=== PATIENT | female | born 1960 | race Caucasian/White ===

== ENCOUNTER 2024-05-20 09:26 | Outpatient (AMB) | payer MEDICARE, MEDICAID, SELFPAY ==
[2024-05-20 09:41] VITALS: BP 138/87; PULSE 77; RESP 19; TEMP 36.3; O2SAT 91; BMI 49.9
--- NOTE | 2024-05-20 09:41 | ORTHONT_ITS ---
Vital signs 05/20/24 09:41 Height 1.65 m Height Method Stated Weight 136.078 kg Weight Measurement Method Estimated by Patient BMI 49.9 BP 138/87 H Blood Pressure Source Automatic Cuff Blood Pressure Location Right Upper Arm Position Sitting Respiration 19 Pulse 77 Pulse Source Monitor Temp 97.3 F Temp Source Temporal Artery Scan Pulse Oximetry (%) 91 L Oxygen Delivery Method Room Air Med/Allergies Allergies & Medications Allergies tetracycline Allergy (Intermediate, Verified 05/20/24 09:42) HIVE Iodinated Contrast Media Allergy (Verified 05/20/24 09:42) Medication Reconciliation apixaban 5 mg tablet (Eliquis) 5 mg PO BID 05/20/24 [History Confirmed 05/20/24] atorvastatin 40 mg tablet 40 mg PO QDAY 05/20/24 [History Confirmed 05/20/24] gabapentin 300 mg tablet,extended release 24 hr 300 mg PO QPM 05/20/24 [History Confirmed 05/20/24] metoprolol succinate 25 mg tablet,extended release 24 hr 25 mg PO QDAY 05/20/24 [History Confirmed 05/20/24] omeprazole 20 mg capsule,delayed release 20 mg PO QDAY 05/20/24 [History Confirmed 05/20/24] tramadol 50 mg tablet 50 mg PO QDAY 05/20/24 [History Confirmed 05/20/24] Exam Exam Patient is in no acute distress and is cooperative with the examination today. Breathing is nonlabored. In no respiratory distress. Patient has no paraspinal tenderness. Spinal deformity cannot be appreciated. The gait of the patient is nonantalgic Bilateral extremities were evaluated and demonstrates sensation intact to light touch. Palpable pedal pulses are present. No significant edema is present. Bilateral knees were examined and the patient has full strength and range of motion.. The right hip was examined. She has significant pain with internal rotation. He has a positive logroll. The left hip was examined. She has significant pain with any rotation and has a positive log roll Assessment and Plan Problem List (1) Degenerative arthritis of knee, bilateral: Status: Acute (2) Arthritis of both hips: Status: Acute Plan: Patient is a 63-year-old female with bilateral hip pain of significant severity. She has morbid obesity is an active smoker although reports She is not ideal candidate for total knee replacement this time. Her main thing I am worried about her only is her morbid obesity. We discussed with her that we typically have a BMI cutoff of 40 as this is the threshold where surgical complications are significantly higher. We thus discussed the weight loss and nonoperative management today. Office Procedures GNS Level of Care Nursing/Assessment Patient Status: Initial/New Patient Nursing Assessment/Reassesment: Medication Reconciliation, Update PMH in EMR and Vital Signs Coordination of Care: Complex Care and Chronic Disease 1-5, Education Complex Pt/Fam, Consent,records obtained, informed consent, Results/Orders obtained and Staff clarify orders New Patient Charge New Patient Point Assignment: 1094 New Patient Point Charge: NUTRITION SERVICES AIDE Level 3 ([id number]) MA Intake Visit Data Collection New Patient or Established: New Patient (never been to [facility]) Reason for Visit:: OSTEOARTHRITIS OF THE HIP Seen by Clinical Staff ONLY (RN/MA): No Verbal consent obtained for Telemed visit?: No Sleep Lab Technician Required: No PCP or OBGYN visit in last 3 months: Yes Hx Now: No Do You Feel Safe at Home: Yes Authorities Contacted: N/A Questionairres Past Medical History Past Medical History Have you ever been diagnosed with any of the following: Respiratory Problems Smoking: Yes Smoking Cessation Counseling: No Smoking Exposure: Yes Stomache/Intestinal Problems Obesity: Yes Subjective Visit Visit for: new patient and hip Immunization / Flu Flu Vaccine in the Last 12 Months: No Flu Vaccine Exclusion Criteria: Refused by Patient History of Present Illness Chief complaint: HIP PAIN Date of injury / onset of symptoms: 5 YEARS AGO Patient is a 63-year-old female on Eliquis for history of PE years ago, presenting with bilateral hip pain and stiffness for past 5 years. Left hip pain worse today because of a fall a few weeks ago. She uses a walker for the past 5 years, only able to walk 20 feet. Patient is seeing pain management monthly for radiating back pain, taking tramadol and gabapentin. She claims hip pain is different from the sciatica. Last physical therapy 3 years ago, she tries home exercises but stopped due to pain. She denies any other medical conditions, but was on diuretics until she stopped 2 weeks ago. She has significant pain in both groins. She is also an active smoker Personal History Occupation: UNEMPLOYED Red flag PMH: smoker, cigarettes qd (specify), Blood thinners and BMI BMI Counceling provided: Yes Pain Pain level (0-10): 7 Pain duration: ALL DAY Pain location: groin Pain quality: sharp, dull, aching, burning, shocking, electric and tingling Pain timing: increases with activity and stairs Associated signs & symptoms: none Ambulatory data Ambulatory device: walker and other (specify) (WHEELCHAIR ) Treatments Improvement with previous injections: No Improvement with PT: No Improvement with NSAIDS: no Review of Systems Review of Systems: All systems negative unless otherwise noted in HPI.
== END 2024-05-20 10:08 | disposition home or self-care (01) ==
PROVIDERS: PCP Specialist; Referring Provider Specialist; Supervising Provider Orthopaedic Surgery Adult Reconstructive Orthopaedic Surgery; Visit Provider Orthopaedic Surgery Adult Reconstructive Orthopaedic Surgery
DX: M17.0 Bilateral primary osteoarthritis of knee (principal); M16.0 Bilateral primary osteoarthritis of hip; E66.01 Morbid (severe) obesity due to excess calories; Z68.42 Body mass index [BMI] 45.0-49.9, adult; S79.912A Unspecified injury of left hip, initial encounter; M25.552 Pain in left hip; W19.XXXA Unspecified fall, initial encounter
CPT/HCPCS: 99203; G0463